=== PATIENT | female | born 1950 | race African-American/Black ===

== ENCOUNTER 2018-04-02 09:16 | Inpatient (IN) | payer MEDICARE, OTHER ==
[~2018-04-02] VITALS: Ht 167.6 cm; Wt 75.7 kg
[~2018-04-02 09:16] MED LIST: ASPI-1159 PO; ATOR20TA65 PO; CARV6.2548 PO; FERR-63 PO; INSNOV SUBCUT; LEVVL SQ; LISI40TA4 PO
[2018-04-02] MEDS ORDERED: SODIUM CHLORIDE 0.9% 500 ML IV ONE (10:10)
[2018-04-02] MEDS ORDERED: LEVETIRACETAM 500MG PREMIX 100 ML IV ONE (10:15)
[2018-04-02 11:47] LABS: BASOPHILS % 0.7 % (0.0-2.0); EOSINOPHILS % 1.2 % (0.0-5.0); HEMATOCRIT. 36.1 % (36.0-48.0); HEMOGLOBIN. 11.8 g/dL (12.0-16.0); LYMPHOCYTES % 20.1 % (20.0-50.0); MEAN CORPUSCULAR HEMOGLOBIN 26.6 pg (28.0-32.0); MEAN CORPUSCULAR VOLUME 81.3 fL (81.0-99.0); MEAN PLATELET VOLUME 7.7 fl (7.4-10.4); MONOCYTES % 4.2 % (2.0-8.0); NEUTROPHILS % 73.8 % (40.0-76.0); PLATELET 297 x1000/uL (130-400); RED BLOOD CELL COUNT 4.44 mill/uL (4.2-5.4); RED CELL DISTRIBUTION WIDTH 14.8 % (11.6-14.6)
[2018-04-02 11:53] LABS: CHLORIDE 102 mEq/L (98-107)
[2018-04-02 11:59] LABS: PARTIAL THROMBOPLASTIN TIME 27.3 sec (23.4-31.0); PROTHROMBIN TIME 9.7 sec (9.1-11.1)
[2018-04-02 12:03] LABS: CREATINE KINASE 65 IU/L (26-192)
[2018-04-02] MEDS ORDERED: CEFTRIAXONE 1 G PREMIX 50 ML IV ONE (12:15)
[2018-04-02] MEDS ORDERED: DEXTROSE 50% WATER 50ML SYRINGE IV PRN (17:30)
[2018-04-02] MEDS ORDERED: CLONIDINE 0.1MG TABLET PO PRN (17:30)
[2018-04-02] MEDS ORDERED: LORAZEPAM 2MG/ML CPJ IV PRN (17:30)
[2018-04-02] MEDS ORDERED: ONDANSETRON HCL 4MG/2ML INJ IV PRN (17:30)
[2018-04-02 20:06] VITALS: BP 132/65
[2018-04-02] MEDS ORDERED: ATORVASTATIN CALCIUM 20MG TABLET PO SCH (21:00)
[2018-04-02] MEDS: BLOOD SUGAR DIAGNOSTIC STRIP TEST SCH (21:12)
[2018-04-02] MEDS: CARVEDILOL 6.25 MG TABLET PO SCH (21:32)
[2018-04-02] MEDS: LEVETIRACETAM 500 MG in SODIUM CHLORIDE 0.9% 100 ML IV SCH (21:32)
[2018-04-02] MEDS: INSULIN LISPRO 100 UNITS/ML SUBCUT SCH ×2 (21:34→21:37)
[2018-04-02 22:25] VITALS: BP 132/65
[2018-04-03] VITALS (7 sets, daily range): BP systolic 10–157; BP diastolic 61–82
[2018-04-03] MEDS: BLOOD SUGAR DIAGNOSTIC STRIP TEST SCH ×4 (06:50→21:01)
[2018-04-03] MEDS ORDERED: INSU100I28 SQ (06:55)
[2018-04-03] MEDS: LISINOPRIL 40MG TABLET PO SCH (08:53)
[2018-04-03] MEDS: CARVEDILOL 6.25 MG TABLET PO SCH ×2 (08:53→21:01)
[2018-04-03] MEDS: LEVETIRACETAM 500 MG in SODIUM CHLORIDE 0.9% 100 ML IV SCH ×2 (08:54→22:30)
[2018-04-03] MEDS: INSULIN LISPRO 100 UNITS/ML SUBCUT SCH ×4 (10:45→21:00)
[2018-04-03 12:04] LABS: *AMPHETAMINES SCREEN URINE NEGATIVE (NEGATIVE); *BARBITURATES SCREEN URINE NEGATIVE (NEGATIVE); *BENZODIAZEPINES SCREEN URINE NEGATIVE (NEGATIVE)
[2018-04-03 12:07] LABS: *COCAINE SCREEN URINE NEGATIVE (NEGATIVE); CANNABINOID URINE SCREEN NEGATIVE (NEGATIVE); METHADONE URINE SCREEN NEGATIVE (NEGATIVE); OPIATES URINE SCREEN NEGATIVE (NEGATIVE); PHENCYCLIDINE URINE SCREEN NEGATIVE (NEGATIVE)
[2018-04-03] MEDS: ENOXAPARIN 40MG/0.4ML SYR SUBCUT SCH (12:53)
[2018-04-03] MEDS: INSULIN GLARGINE UD 100 UNITS/ML SYR SUBCUT SCH ×2 (12:57→21:02)
[2018-04-03] MEDS: ATORVASTATIN CALCIUM 40MG TABLET PO SCH (21:01)
[2018-04-04] VITALS: BP 120/52
[2018-04-04 04:00] VITALS: BP 127/68
[2018-04-04] MEDS: BLOOD SUGAR DIAGNOSTIC STRIP TEST SCH ×4 (06:33→21:17)
[2018-04-04 06:53] LABS: BASOPHILS % 0.8 % (0.0-2.0); EOSINOPHILS % 4.2 % (0.0-5.0); HEMATOCRIT. 29.9 % (36.0-48.0); HEMOGLOBIN. 10.1 g/dL (12.0-16.0); MEAN CORPUSCULAR HEMOGLOBIN 27.3 pg (28.0-32.0); MEAN CORPUSCULAR VOLUME 80.5 fL (81.0-99.0); MEAN PLATELET VOLUME 7.8 fl (7.4-10.4); MONOCYTES % 5.8 % (2.0-8.0); NEUTROPHILS % 46.2 % (40.0-76.0); PLATELET 242 x1000/uL (130-400); RED BLOOD CELL COUNT 3.72 mill/uL (4.2-5.4); RED CELL DISTRIBUTION WIDTH 14.3 % (11.6-14.6)
[2018-04-04] MEDS ORDERED: ACETAMINOPHEN 325MG TABLET PO PRN (07:15)
[2018-04-04 07:16] LABS: CHLORIDE 109 mEq/L (98-107)
[2018-04-04] MEDS: INSULIN LISPRO 100 UNITS/ML SUBCUT SCH ×4 (07:50→21:28)
[2018-04-04] MEDS: CARVEDILOL 6.25 MG TABLET PO SCH ×2 (09:18→21:14)
[2018-04-04] MEDS: LISINOPRIL 40MG TABLET PO SCH (09:19)
[2018-04-04] MEDS: ENOXAPARIN 40MG/0.4ML SYR SUBCUT SCH (09:19)
[2018-04-04 09:34] VITALS: BP 159/71
[2018-04-04] MEDS: INSULIN GLARGINE UD 100 UNITS/ML SYR SUBCUT SCH ×2 (09:46→21:45)
[2018-04-04] MEDS: LEVETIRACETAM 500 MG in SODIUM CHLORIDE 0.9% 100 ML IV SCH ×2 (10:15→21:35)
[2018-04-04 12:20] VITALS: BP 159/71
[2018-04-04 16:54] VITALS: BP 193/93
[2018-04-04 20:00] VITALS: BP 149/58
[2018-04-04] MEDS: ATORVASTATIN CALCIUM 40MG TABLET PO SCH (21:14)
[2018-04-05] VITALS: BP 111/61
[2018-04-05 04:00] VITALS: BP 151/78
[2018-04-05] MEDS: BLOOD SUGAR DIAGNOSTIC STRIP TEST SCH (06:41)
[2018-04-05] MEDS: LISINOPRIL 40MG TABLET PO SCH (08:50)
[2018-04-05] MEDS: CARVEDILOL 6.25 MG TABLET PO SCH (08:50)
[2018-04-05] MEDS: INSULIN LISPRO 100 UNITS/ML SUBCUT SCH (08:53)
[2018-04-05] MEDS: ENOXAPARIN 40MG/0.4ML SYR SUBCUT SCH ×2 (08:54→11:57)
[2018-04-05 09:02] VITALS: BP 152/74
[2018-04-05 09:37] VITALS: BP 152/74
[2018-04-05] MEDS: INSULIN GLARGINE UD 100 UNITS/ML SYR SUBCUT SCH (11:54)
[2018-04-05 12:40] VITALS: BP 170/84
== END 2018-04-05 13:50 | disposition home or self-care (01) | DRG 101 ==
LOC: ER 09:26 → EDBEDREQ 10:15 → 6WST 12:55 → EDBEDREQ 13:07 → EDBEDREQTM 13:07 → CANRESERV 14:12 → ENRESERV 14:12
PROVIDERS: ADMIT Internal Medicine; ATTEND Internal Medicine
PROC: 4A10X4Z Monitoring of Central Nervous Electrical Activity, External Approach (ICD-10-PCS; principal; 2018-04-04)
DX: G40.409 Other generalized epilepsy and epileptic syndromes, not intractable, without status epilepticus (principal); I69.354 Hemiplegia and hemiparesis following cerebral infarction affecting left non-dominant side; E44.1 Mild protein-calorie malnutrition; E78.00 Pure hypercholesterolemia, unspecified; E11.22 Type 2 diabetes mellitus with diabetic chronic kidney disease; I12.9 Hypertensive chronic kidney disease with stage 1 through stage 4 chronic kidney disease, or unspecified chronic kidney disease; E11.51 Type 2 diabetes mellitus with diabetic peripheral angiopathy without gangrene; N18.3 Chronic kidney disease, stage 3 (moderate); Z79.899 Other long term (current) drug therapy; Z79.82 Long term (current) use of aspirin; Z68.27 Body mass index [BMI] 27.0-27.9, adult
CPT/HCPCS: 36415; 70551; 71045; 80048; 80061; 80305; 82550; 82962; 83735; 83880; 84443; 84484; 87106; 93005; 93306; 93970; 96365; 96368; 97162; 97166; 97530; 99291; G0482; J0696; J1650; J1815; J1953; J7040; J7050; A4315